=== PATIENT | female | born 1995 | race American Indian/Alaskan Native ===

== ENCOUNTER 2017-04-17 22:30 | Emergency (ER) | payer MEDICAID ==
[2017-04-17 22:42] VITALS: BP 145/47
--- NOTE | 2017-04-17 23:17 | EDM.PDOC ---
ED HPI GENERAL MEDICAL PROBLEM - General Chief Complaint: Abdominal Pain Stated Complaint: MEDICAL [facility]IA [facility] Time Seen by Provider: 04/17/17 23:16 Source of Information: Reports: Patient, Family History Limitations: Reports: No Limitations - History of Present Illness INITIAL COMMENTS - FREE TEXT/NARRATIVE: pt arrived after having an acute episode of severe upper abdomanal pain which came on all of a sudden. She did not vomit. She did have some loose stools throughout the day. Onset: Today Duration: Hour(s): Location: Reports: Abdomen Associated Symptoms: Reports: Other (pt did have diarrhea earlier in the day. 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: Psychiatric History: Reports: Bipolar Endocrine/Metabolic History: Reports: Obesity/BMI 30+ - Infectious Disease History Infectious Disease History: Reports: Chicken Pox Social & Family History - Tobacco Use Smoking Status *Q: Never Smoker Second Hand Smoke Exposure: No - Caffeine Use Caffeine Use: Reports: Coffee, Energy Drinks, Soda, Tea - Recreational Drug Use Recreational Drug Use: No ED ROS GENERAL - Review of Systems Review Of Systems: See Below Constitutional: Reports: No Symptoms HEENT: Reports: No Symptoms Respiratory: Reports: No Symptoms Cardiovascular: Reports: No Symptoms Endocrine: Reports: No Symptoms GI/Abdominal: Reports: Abdominal Pain, Diarrhea : Reports: No Symptoms Musculoskeletal: Reports: No Symptoms Skin: Reports: No Symptoms ED EXAM, GI/ABD - Physical Exam Exam: See Below Text/Narrative:: pt is a pale appearing pt who had uppr abdomanal pain. She came by ambulance from [place] and she was pain free on arrival. She was not willing to stay for further workup. Exam Limited By: No Limitations General Appearance: Alert, Anxious Eyes: Bilateral: Normal Appearance, EOMI Ears: Normal TMs Nose: Normal Inspection Throat/Mouth: Normal Inspection Head: Atraumatic Neck: Normal Inspection Respiratory/Chest: No Respiratory Distress Cardiovascular: Regular Rate, Rhythm GI/Abdominal Exam: Other (pt has a soft abdoman which is not tender. ) (Female) Exam: Deferred Rectal (Female) Exam: Deferred Back Exam: Normal Inspection Extremities: Normal Inspection Neurological: Alert, Oriented, Normal Cognition Psychiatric: Normal Affect Course - Vital Signs Last Recorded V/S: Last Vital Signs Temp 36.5 C 04/17/17 22:41 Pulse 92 04/17/17 22:41 Resp 16 04/17/17 22:41 BP 145/47 H 04/17/17 22:41 Pulse Ox 98 04/17/17 22:41 - Orders/Labs/Meds Orders: Active Orders 24 hr Category Date Time Status HCG QUALITATIVE,URINE [URCHEM] Stat Lab 04/17/17 23:50 Ordered UA W/MICROSCOPIC [URIN] Urgent Lab 04/17/17 23:50 Ordered Labs: Laboratory Tests 04/17/17 04/17/17 04/17/17 Range/Units 23:25 23:25 23:25 WBC 16.8 H (4.5-11.0) K/uL RBC 4.20 (3.30-5.50) M/uL Hgb 9.8 L (12.0-15.0) g/dL Hct 31.9 L (36.0-48.0) % MCV 76 L (80-98) fL MCH 23 L (27-31) pg MCHC 31 L (32-36) % Plt Count 413 H (150-400) K/uL Neut % (Auto) 87 H (36-66) % Lymph % (Auto) 8 L (24-44) % [facility] % (Auto) 4 (2-6) % Eos % (Auto) 1 L (2-4) % Baso % (Auto) 0 (0-1) % Sodium 142 (140-148) mmol/L Potassium 3.2 L (3.6-5.2) mmol/L Chloride 105 (100-108) mmol/L Carbon Dioxide 27 (21-32) mmol/L Anion Gap 13.2 (5.0-14.0) mmol/L BUN 13 (7-18) mg/dL Creatinine 0.8 (0.6-1.0) mg/dL Est Cr Clr Drug Dosing 100.10 mL/min Estimated GFR (MDRD) > 60 (>60) Glucose 116 H (74-106) mg/dL Calcium 8.6 (8.5-10.1) mg/dL Total Bilirubin 0.9 (0.2-1.0) mg/dL AST 152 H (15-37) U/L ALT 79 H (12-78) U/L Alkaline Phosphatase 107 (46-116) U/L C-Reactive Protein 0.14 (0.0-0.3) mg/dL Total Protein 6.9 (6.4-8.2) g/dL Albumin 3.7 (3.4-5.0) g/dL Globulin 3.2 (2.3-3.5) g/dL Albumin/Globulin Ratio 1.2 (1.2-2.2) - Re-Assessments/Exams Free Text/Narrative Re-Assessment/Exam: 04/18/17 00:02 pt had a wbc of 16,000. Her hg was 9.7. She had elevated liver enzymes. She was not willing to stay for fuurther workup. Will schedule her to return for a abdomanal US. She will see Dr Jacobo in follow up Departure - Departure Time of Disposition: 23:56 Disposition: Home, Self-Care 01 Condition: Fair Clinical Impression: Abdominal pain, Anemia, Elevated liver enzymes - Discharge Information Referrals: PCP,None [Primary Care Provider] - Forms: ED Department Discharge Care Plan Goals: rtc for limited abdoman US to r/o gb disease, appt with Dr Umang Jacobo th first of the week, Pt wanted to definitely leave. She did not want to stay for further work up. - My Orders Last 24 Hours: My Active Orders 04/17/17 23:50 HCG QUALITATIVE,URINE [URCHEM] Stat UA W/MICROSCOPIC [URIN] Urgent - Assessment/Plan Last 24 Hours: My Active Orders 04/17/17 23:50 HCG QUALITATIVE,URINE [URCHEM] Stat UA W/MICROSCOPIC [URIN] Urgent
== END 2017-04-18 00:12 | disposition home or self-care (01) ==
LOC: JP.ED 22:30
DX: R10.13 Epigastric pain (principal); R74.8 Abnormal levels of other serum enzymes; F31.9 Bipolar disorder, unspecified; E66.9 Obesity, unspecified; D64.9 Anemia, unspecified; Z88.6 Allergy status to analgesic agent; Z68.31 Body mass index [BMI] 31.0-31.9, adult
CPT/HCPCS: 36415; 80053; 81001; 81025; 85025; 86140; 99283; 99284

== ENCOUNTER 2020-06-30 23:26 | Emergency (ER) | payer MEDICAID ==
--- NOTE | 2020-06-30 23:45 | EDM.PDOC ---
ED HPI GENERAL MEDICAL PROBLEM - General Chief Complaint: General Stated Complaint: PANIC ATTACK Time Seen by Provider: 06/30/20 23:42 Source of Information: Reports: Patient, EMS History Limitations: Reports: No Limitations - History of Present Illness INITIAL COMMENTS - FREE TEXT/NARRATIVE: patient presents to the ER tonight due to concern about her ears, jaw, lips feeling funny, sore throat that started 2 hours ago and this circling concerns but nothing really definitive in nature. she states that symptoms have been going on for about a month. she states she had some teeth extracted about a month ago, then had concern about infection on right side and given ABX but did not finish them. she also reports being a smoker. she has not sought care again from dentist/oral surgeon since extraction nor has she contacted her PCM regarding this ongoing concerns/complaints. tonight while driving to the ER from her home she became more & more concerned/anxious about her symptoms and stopped/called EMS who upon arrival to side of road she was parked found her in the mist of a reported panic attack, they were able to calm her down & at her request brought her to the ER for further evaluation Onset: Unknown/Unsure Right Ear Pain Score (Numeric/FACES): 6 - Related Data Allergies Allergy/AdvReac Type Severity Reaction Status Date / Time ibuprofen Allergy Hives Verified 06/30/20 23:37 Home Meds: Home Meds NK [No Known Home Meds] 04/17/17 [History] Past Medical History - Past Health History Medical/Surgical History: Denies Medical/Surgical History Gastrointestinal History: Reports: Other (See Below) Other Gastrointestinal History: 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 Constitutional: Reports: No Symptoms HEENT: Reports: Dental Pain, Ear Pain, Throat Pain. Denies: Vertigo, Vision Change Respiratory: Reports: No Symptoms Cardiovascular: Reports: No Symptoms Endocrine: Reports: No Symptoms GI/Abdominal: Reports: No Symptoms : Reports: No Symptoms Musculoskeletal: Reports: No Symptoms Skin: Reports: No Symptoms Neurological: Reports: Dizziness, Headache Psychiatric: Reports: Anxiety Hematologic/Lymphatic: Reports: No Symptoms Immunologic: Reports: No Symptoms ED EXAM, GENERAL - Physical Exam Exam: See Below Exam Limited By: No Limitations General Appearance: Alert, WD/WN, No Apparent Distress, Anxious Eye Exam: Bilateral Eye: EOMI, Normal Inspection, PERRL Ears: Normal External Exam, Normal Canal, Hearing Grossly Normal, Normal TMs Nose: Normal Inspection, Normal Mucosa, No Blood Throat/Mouth: Normal Inspection, Normal Lips, Normal Teeth, Normal Gums, Normal Oropharynx, Normal Voice, No Airway Compromise Head: Atraumatic, Normocephalic Neck: Normal Inspection, Supple, Non-Tender, Full Range of Motion. No: Lymphadenopathy (R), Lymphadenopathy (L) Respiratory/Chest: No Respiratory Distress, Lungs Clear, Normal Breath Sounds, No Accessory Muscle Use, Chest Non-Tender Cardiovascular: Normal Peripheral Pulses, Regular Rate, Rhythm, No Edema, No JVD, No Murmur Peripheral Pulses: 2+: Radial (L), Radial (R) GI/Abdominal: Normal Bowel Sounds, Soft, Non-Tender, Other (obese) (Female) Exam: Deferred Rectal (Female) Exam: Deferred Back Exam: Normal Inspection, Full Range of Motion Extremities: Normal Inspection, Normal Range of Motion, Non-Tender, No Pedal Edema, Normal Capillary Refill Neurological: Alert, Oriented, CN II-XII Intact, Normal Cognition, Normal Gait, No Motor/Sensory Deficits (finger to nose/heel to rey normal, neg rhomberg, gait normal forward & backwards) Psychiatric: Anxious Skin Exam: Warm, Dry, Intact, Normal Color Course - Vital Signs Text/Narrative:: 0011--negative for any acute concerns on medical screening exam, offered rapid strep but declined stating she needed an x-ray. when ask what she wanted to have x-rayed she said to look for infection. she then said she was given ABX several weeks ago for her mouth after dental extraction but then did not take antibiotics. at this time there are no acute concerns on exam noted by this physician, patient was instructed to follow up with her oral surgeon/dentist regarding mouth complaint and her PCM regarding other noted concerns expressed tonight that have been ongoing for the past month. she is ready for d/c Last Recorded V/S: Last Vital Signs Temp 97 F 06/30/20 23:45 Pulse 66 12/21/20 23:45 Resp 18 06/30/20 23:45 BP 126/69 06/30/20 23:45 Pulse Ox 99 06/30/20 23:45 Departure - Departure Time of Disposition: 00:14 Disposition: Home, Self-Care 01 Clinical Impression: Encounter for medical screening examination - Discharge Information *PRESCRIPTION DRUG MONITORING PROGRAM REVIEWED*: Not Applicable *COPY OF PRESCRIPTION DRUG MONITORING REPORT IN PATIENT MERARI: Not Applicable Referrals: PCP,None [Primary Care Provider] - Forms: ED Department Discharge Additional Instructions: it is recommended that your follow up with your oral surgeon/dentist as well as your family doctor regarding anil's ER visit concerns ensure you are drinking plenty of fluids--water/juice/sports drinks of choice ensure you are getting plenty of rest/sleep eat a healthy, well balanced diet -- limit soda, alcoholic beverages as well as highly caffienated products smoking cessation is strongly encouraged Sepsis Event Note (ED) - Focused Exam Vital Signs: Vital Signs Temp Pulse Resp BP Pulse Ox 06/30/20 23:45 97 F 66 18 126/69 99
[2020-07-01 00:20] VITALS: BP 126/69; PULSE 66
== END 2020-07-01 00:30 | disposition home or self-care (01) ==
LOC: JP.ED 23:26
DX: H92.01 Otalgia, right ear (principal); E66.9 Obesity, unspecified; Z68.32 Body mass index [BMI] 32.0-32.9, adult; Z88.6 Allergy status to analgesic agent
CPT/HCPCS: 99284

== ENCOUNTER 2021-03-16 13:15 | Emergency (ER) | payer MEDICAID ==
[2021-03-16 13:56] VITALS: BP 140/75; PULSE 89
--- NOTE | 2021-03-16 14:16 | EDM.PDOC ---
ED HPI GENERAL MEDICAL PROBLEM - General Chief Complaint: ENT Problem Stated Complaint: HEADACHE, POSSIBLE SINUS INFECTION. Time Seen by Provider: 03/16/21 13:55 Source of Information: Reports: Patient, Old Records, RN History Limitations: Reports: No Limitations - History of Present Illness INITIAL COMMENTS - FREE TEXT/NARRATIVE: 25 yo NA female presents with some congestion, clear nasal discharge and intermittent frontal pressure. Sx's for about a month. Has not shared her concerns with her doctor. Is currently . No fever. No sore throat. No cough. Onset: Gradual Onset Date: 02/14/21 Duration: Week(s): (4), Waxing/Waning Location: Reports: Head, Face Quality: Reports: Pressure Severity: Mild Improves with: Reports: Other (unsure) Worsens with: Reports: Other (unsure) Context: Reports: Other (See HPI) Associated Symptoms: Reports: No Other Symptoms. Denies: Chest Pain, Cough, Diaphoresis, Fever/Chills, Nausea/Vomiting, Rash, Shortness of Breath Treatments FIRST LEVELER: Reports: Other (see below) (none) Face/Facial Pain Score (Numeric/FACES): 4 - Related Data Allergies Allergy/AdvReac Type Severity Reaction Status Date / Time ibuprofen Allergy Hives Verified 03/16/21 13:58 Home Meds: Home Meds NK [No Known Home Meds] 04/17/17 [History] Past Medical History - Past Health History Medical/Surgical History: Denies Medical/Surgical History Gastrointestinal History: Reports: Cholelithiasis, Other (See Below) Other Gastrointestinal History: hernia 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: Neurological History: Reports: Headaches, Chronic Psychiatric History: Reports: ADHD, Bipolar Endocrine/Metabolic History: Reports: Obesity/BMI 30+ Hematologic History: Reports: Anemia - Infectious Disease History Infectious Disease History: Reports: Chicken Pox - Past Surgical History HEENT Surgical History: Reports: Oral Surgery Social & Family History - Caffeine Use Caffeine Use: Reports: Coffee, Energy Drinks, Soda, Tea - Recreational Drug Use Recreational Drug Use: No ED ROS ENT - Review of Systems Review Of Systems: See Below Constitutional: Reports: No Symptoms HEENT: Reports: Rhinitis, Sinus Problem. Denies: Dental Pain, Ear Pain, Nose Pain, Vertigo, Vision Change Respiratory: Reports: No Symptoms Cardiovascular: Reports: No Symptoms GI/Abdominal: Reports: No Symptoms : Reports: No Symptoms Musculoskeletal: Reports: No Symptoms Skin: Reports: No Symptoms Neurological: Reports: No Symptoms ED EXAM, ENT - Physical Exam Exam: See Below Exam Limited By: No Limitations General Appearance: Alert, WD/WN, No Apparent Distress Eye Exam: Bilateral Eye: Normal Inspection Ears: Normal External Exam, Normal Canal, Hearing Grossly Normal, Normal TMs Nose: Normal Inspection, No Blood, Clear Rhinorrhea Mouth/Throat: Normal Inspection, Normal Lips, Normal Oropharynx Head: Atraumatic, Normocephalic Neck: Normal Inspection Respiratory/Chest: No Respiratory Distress, Lungs Clear, Normal Breath Sounds, No Accessory Muscle Use Cardiovascular: Regular Rate, Rhythm, No Edema Extremities: Normal Inspection Neurological: Alert, Oriented, CN II-XII Intact, Normal Cognition, No Motor/Sensory Deficits Psychiatric: Normal Affect, Normal Mood Skin: Warm, Dry, Intact, Normal Color, No Rash Course - Vital Signs Last Recorded V/S: Last Vital Signs Temp 36.5 C 03/16/21 13:57 Pulse 89 03/16/21 13:57 Resp 16 03/16/21 13:57 BP 140/75 03/16/21 13:57 Pulse Ox 100 03/16/21 13:57 Departure - Departure Time of Disposition: 14:16 Disposition: Home, Self-Care 01 Condition: Good Clinical Impression: Frontal sinus pain - Discharge Information *PRESCRIPTION DRUG MONITORING PROGRAM REVIEWED*: Not Applicable *COPY OF PRESCRIPTION DRUG MONITORING REPORT IN PATIENT MERARI: Not Applicable Instructions: Sinus Headache, [id number] Referrals: PCP,None [Primary Care Provider] - Additional Instructions: Take Amoxicillin as directed. Use acetaminophen for pain relief. F/U with your doctor by the end of the week. Sepsis Event Note (ED) - Evaluation Sepsis Screening Result: No Definite Risk - Focused Exam Vital Signs: Vital Signs Temp Pulse Resp BP Pulse Ox 03/16/21 13:57 36.5 C 89 16 140/75 100 03/16/21 13:55 36.5 C 89 16 140/75 100
== END 2021-03-16 14:31 | disposition home or self-care (01) ==
LOC: JP.ED 13:15
DX: J34.89 Other specified disorders of nose and nasal sinuses (principal); E66.9 Obesity, unspecified; Z68.33 Body mass index [BMI] 33.0-33.9, adult; Z88.8 Allergy status to other drugs, medicaments and biological substances
CPT/HCPCS: 99283

== ENCOUNTER 2025-03-23 02:50 | Emergency (ER) | payer MEDICAID ==
[2025-03-23 03:12] LABS: AMPHETAMINES SCREEN, URINE NEGATIVE (NEGATIVE); METHADONE SCREEN, URINE NEGATIVE (NEGATIVE); OXYCODONE SCREEN,URINE NEGATIVE (NEGATIVE); PROPOXYPHENE SCREEN,URINE NEGATIVE (NEGATIVE); THC SCREEN,URINE 50 NG/ML NEGATIVE (NEGATIVE)
[2025-03-23 03:14] LABS: METHAMPHETAMINES SCREEN, URINE PRESUMPTIVE POSITIVE (NEGATIVE)
[2025-03-23 03:35] VITALS: BP 128/79; PULSE 120
== END 2025-03-23 03:33 ==
LOC: JP.ED 02:50
DX: F15.90 Other stimulant use, unspecified, uncomplicated (principal); E66.9 Obesity, unspecified; F17.200 Nicotine dependence, unspecified, uncomplicated; Z88.8 Allergy status to other drugs, medicaments and biological substances; Z79.899 Other long term (current) drug therapy; Z68.36 Body mass index [BMI] 36.0-36.9, adult
CPT/HCPCS: 80305-QW; 81025; 99283